=== PATIENT | male | born 1945 | race African-American/Black ===

== ENCOUNTER 2018-12-28 13:30 | Emergency (ER) | payer OTHER, MEDICAID ==
[~2018-12-28] VITALS: Ht 172.7 cm; Wt 55.0 kg
[2018-12-28] MEDS ORDERED: SODIUM CHLORIDE 0.9% 1,000 ML IV ONE ×2 (14:36→17:00)
[2018-12-28 15:17] LABS: CHLORIDE 95 mEq/L (98-107)
[2018-12-28 15:20] LABS: BASOPHILS % 0.3 % (0.0-2.0); EOSINOPHILS % 0.1 % (0.0-5.0); HEMATOCRIT. 44.6 % (42.0-52.0); HEMOGLOBIN. 14.6 g/dL (14.0-18.0); LYMPHOCYTES % 44.3 % (20.0-50.0); MEAN CORPUSCULAR HEMOGLOBIN 27.5 pg (28.0-32.0); MEAN CORPUSCULAR VOLUME 84.2 fL (80.0-94.0); MEAN PLATELET VOLUME 6.8 fl (7.4-10.4); NEUTROPHILS % 42.3 % (40.0-76.0); PLATELET 258 x1000/uL (130-400); RED CELL DISTRIBUTION WIDTH 14.5 % (11.6-14.6)
[2018-12-28 15:21] LABS: ETHANOL BLOOD < 10 mg/dL
[2018-12-28 16:15] LABS: CLARITY URINE CLEAR (CLEAR); COLOR URINE YELLOW (YELLOW); KETONES URINE NEGATIVE (NEGATIVE); LEUKOCYTE ESTERASE URINE NEGATIVE (NEGATIVE); NITRITE URINE NEGATIVE (NEGATIVE); OCCULT BLOOD URINE NEGATIVE (NEGATIVE); PROTEIN URINE 3+ (NEGATIVE); SPECIFIC GRAVITY URINE 1.022 (1.005-1.030)
[2018-12-28 16:39] LABS: *AMPHETAMINES SCREEN URINE PRESUMTIVE POSITIVE (NEGATIVE); *BENZODIAZEPINES SCREEN URINE PRESUMTIVE POSITIVE (NEGATIVE); *COCAINE SCREEN URINE NEGATIVE (NEGATIVE); METHADONE URINE SCREEN NEGATIVE (NEGATIVE); OPIATES URINE SCREEN NEGATIVE (NEGATIVE)
[2018-12-28 16:40] LABS: *BARBITURATES SCREEN URINE NEGATIVE (NEGATIVE); CANNABINOID URINE SCREEN NEGATIVE (NEGATIVE); PHENCYCLIDINE URINE SCREEN NEGATIVE (NEGATIVE)
[2018-12-28 16:48] VITALS: BP 166/95
== END 2018-12-28 20:11 | disposition left against medical advice (07) ==
LOC: ER 13:30 → EDBEDREQ 18:15 → ER 20:11 → CANBEDREQ 20:27
DX: R40.4 Transient alteration of awareness (principal); R53.1 Weakness; N39.0 Urinary tract infection, site not specified; R64 Cachexia; R62.7 Adult failure to thrive; E87.1 Hypo-osmolality and hyponatremia; E72.20 Disorder of urea cycle metabolism, unspecified; E88.09 Other disorders of plasma-protein metabolism, not elsewhere classified; F15.10 Other stimulant abuse, uncomplicated; F19.10 Other psychoactive substance abuse, uncomplicated; I10 Essential (primary) hypertension; J45.909 Unspecified asthma, uncomplicated; B20 Human immunodeficiency virus [HIV] disease
CPT/HCPCS: 36415; 71045; 80053; 80305; 80320; 81003; 82140; 83880; 84443; 84484; 85025; 93005; 96360; 96361; 99284; J7030; G0480

== ENCOUNTER 2025-04-21 17:52 | Emergency (ER) | payer BC, MEDICAID ==
[~2025-04-21] VITALS: Ht 177.8 cm; Wt 65.0 kg
[2025-04-21 17:55] VITALS: O2SAT 99
[2025-04-21 18:19] VITALS: TEMP 36.9
[2025-04-21] MEDS: SODIUM CHLORIDE 0.9% 1,000 ML IV ONE (18:30)
[2025-04-21 18:33] LABS: BASOPHILS % 0.8 % (0.0-2.0); EOSINOPHILS % 1.8 % (0.0-5.0); HEMATOCRIT. 35.7 % (42.0-52.0); HEMOGLOBIN. 11.8 g/dL (14.0-18.0); LYMPHOCYTES % 28.9 % (20.0-50.0); MEAN PLATELET VOLUME 6.7 fl (7.4-10.4); MONOCYTES % 11.9 % (2.0-8.0); NEUTROPHILS % 56.6 % (40.0-76.0); PLATELET 248 x1000/uL (130-400); RED BLOOD CELL COUNT 3.88 mill/uL (4.7-6.1); RED CELL DISTRIBUTION WIDTH 16.2 % (11.6-14.6)
[2025-04-21 18:43] LABS: INR 1.0
[2025-04-21 18:48] LABS: CREATININE 3.2 mg/dL (0.6-1.3); ETHANOL BLOOD < 10 mg/dL (<10); TROPONIN I HIGH SENSITIVITY < 4 ng/L (3.0-53); UREA NITROGEN BLOOD 37 mg/dL (9-23)
[2025-04-21 18:50] LABS: ASPARTATE AMINOTRANSFERASE 16 IU/L (<34); BILIRUBIN DIRECT < 0.1 mg/dL (<=3.0); BILIRUBIN TOTAL 0.3 mg/dL (0.1-1.0); PROTEIN TOTAL 7.8 g/dL (6.0-8.3)
[2025-04-21] MEDS ORDERED: CEFEPIME 2GM/100ML 100 ML IV NR (19:25)
[2025-04-21] MEDS ORDERED: VANCOMYCIN 1G PREMIX 200 ML IV NR (19:26)
[2025-04-21] MEDS ORDERED: AZIT250T12 MT (19:30)
[2025-04-21] MEDS ORDERED: AMOX1TAB16 MT (19:30)
[2025-04-21 20:07] VITALS: BP 112/55; PULSE 87; RESP 15; O2SAT 95
[2025-04-21] MEDS ORDERED: CEFEPIME 2GM/50ML DUPLEX 50 ML IV SCH (22:00)
== END 2025-04-21 19:50 | disposition left against medical advice (07) ==
LOC: ER 17:52 → CMPBEDREQ 04-22 08:56
DX: R55 Syncope and collapse (principal); E78.00 Pure hypercholesterolemia, unspecified; I10 Essential (primary) hypertension; J45.909 Unspecified asthma, uncomplicated; J18.9 Pneumonia, unspecified organism; N17.9 Acute kidney failure, unspecified; Z98.890 Other specified postprocedural states; Z88.8 Allergy status to other drugs, medicaments and biological substances
CPT/HCPCS: 80076; 80048; 80320; 83735; 85025; 85610; 85730; 84484; 36415; 71045; 93005; 99285; J0692; J7030; A4606; G0480